=== PATIENT | male | born 1940 | race Caucasian/White ===

== ENCOUNTER 2016-11-18 09:02 | Day surgery (SDC) | payer MEDICARE ==
[~2016-11-18] VITALS: Ht 182.9 cm; Wt 74.8 kg
[~2016-11-18 09:02] MED LIST: 0.9% Sodium Chloride 1,000 ML IV SCH; ASCO500W7 PO; ASPI-973 PO; CALC-235 PO; COPP2CAP PO; GLUC500T12 PO; LIP40 PO; LOSA1TAB9 PO; LUTE20TA PO; METO25TA99 PO; MILK200C4 PO; MULT1CAP33 PO; OMEP20CA11 PO; Sodium Chloride LOK Flush 10 mL Syringe IV PRN; TAUR1000 PO; TURM500C7 PO; VIT1TABL83 PO; VITA400C64 PO; ZINC50TA2 PO; fentaNYL-PF 50 mCg/mL 2 mL Inj IVPUSH PRN
[2016-11-18] MEDS ORDERED: Propofol 10,000 mCg/mL 20 mL Inj ONE (09:03)
[2016-11-18] MEDS ORDERED: fentaNYL-PF 50 mCg/mL 2 mL Inj ONE (09:03)
[2016-11-18 09:30] VITALS: BP 136/99; PULSE 65; RESP 16; O2SAT 100
--- NOTE | 2016-11-18 10:59 | PCM.HPANE ---
Patient Data Date of Service: Nov 18, 2016 (1100) Surgeon Admitting Provider: Attending Provider:Evaristo Candelaria MD Primary Care Physician:Dagoberto Sheffield MD Other Provider: Reason for Visit Colon Cancer Screening, Barretts Esop Ht/WT & BMI Height (Feet): 6 Height (Inches): 0 Weight (Kilograms): 74.84 Body Mass Index 22.00 Allergies Coded Allergies: lisinopril (Verified Allergy, Unknown, 11/18/16) Past Anesthesia History Anesthesia History: Denies:: Abnormal Airway, Anesthesia Reactions, Difficult Intubation, Fam Anesthesia Reaction, Fam Malignant Hypertherm, Malignant Hyperthermia Diabetes History Hx Diabetes?: No MRSA MRSA: No Medications Blood Thinner: Aspirin Home Meds Incl Beta Pastor: Yes Date Beta Pastor Taken: Nov 15, 2016 Time Beta Pastor Taken: 0800 Reported Medications Zinc (Zinc Chelated)50 Mg Iyvitn32 Mg PO DAILY 11/16/16 Vitamin E Mixed (Vitamin E)400 Unit [id number] Unit PO DAILY 30 Days 11/16/16 Ascorbic Acid/Ascorbate Sodium (Vitamin C 500 mg Wafer)500 Mg Tafir053 Mg PO DAILY 11/16/16 Vit B Comp/C/FA/Iron/Vit E (Vitamin B Complex Tablet)1 Each Tablet1 Each PO DAILY 11/16/16 Turmeric Root Extract (Turmeric)500 Mg Capsule1 Capsule PO DAILY 11/16/16 Taurine (Serafin Taurine)1,000 Mg Capsule1,000 Mg PO DAILY 11/16/16 Omeprazole 20 Mg Capsule.dr20 Mg PO DAILY Ref 0 11/16/16 Multivitamin (Multivitamins)1 Each Capsule1 Each PO DAILY 11/16/16 Milk Thistle Seed Extract (Milk Thistle)200 Mg Omhqjsq713 Mg PO DAILY 11/16/16 Metoprolol Succinate ER 25 Mg Tab.er.24h25 Mg PO DAILY Ref 0 11/16/16 Lutein 20 Mg Oiwfyl98 Mg PO DAILY 11/16/16 Losartan/HCTZ 100-12.5 mg (Hyzaar 100-12.5 mg)1 Each Tablet1 Tablet PO DAILY 11/16/16 Glucosamine 500 Mg Tablet1,500 Mg PO DAILY 11/16/16 Copper Gluconate (Copper)2 Mg Capsule2 Mg PO DAILY 11/16/16 Calcium Carbonate/Vitamin D3 (Calcium 250+D Tablet)1 Each Tablet1 Each PO DAILY 11/16/16 Atorvastatin (Lipitor)40 Mg Attzeu35 Mg PO DAILY Ref 0 11/16/16 Aspirin 81 Mg Rhewwr42 Mg PO DAILY Ref 0 11/16/16 History History of ENT Problems?: No HEENT History: Denies:: Abnormal Airway Difficult Intubation Hearing Problem Hx of Heart Problems?: No Cardiovascular History: Positive for:: Hypertension Denies:: AICD Pacemaker Valvular Heart Disease Hx of Respiratory Problem?: No Respiratory History: Denies:: Cough Neurological History: Denies:: CVA Hx of GI Problems?: Yes Gastrointestinal History: Positive for:: Gastroesphageal Reflux Hx Surgeries?: Yes (TONSILS, ) Hx Any Other Health Problems?: No Hx Diabetes: No Hx Alcohol Use: Yes (3-5 beers / day) Stop/Bang Treated for Sleep Apnea?: No Do You Have a CPAP Machine?: No S-Snoring: Do You Snore Loudly: Yes T-Tired: feel tired, fatigued: No O-Obsered: Observed not breath: Yes P-Blood Pressure: treated: Yes B- Body Mass Index > 35 kg/m2: No A- Age over 50: Yes N- Neck Large Circumference: No G- Gender Male: Yes MARYSOL Total Score: 5 MARYSOL Risk Assessment: High Risk, =/>3 Yes MARYSOL Category 2: Yes Risk Assessment Category Category 1A: Patient has history of documented sleep apnea, and HAS NOT received any narcotic, sedative or anesthesia administration during this stay. Category 1B: Patient has history of documented sleep apnea, and HAS received any narcotic , sedative or anesthesia administration during this stay Category 2: Patient has SUSPECTED Obstructive Sleep Apnea, and HAS received any narcotic , sedative or anesthesia administration during this stay. Category 3: Patient has SUSPECTED Obstructive Sleep Apnea and HAS NOT received narcotic, sedative or anesthesia administration during this stay. Category 4: Outpatient in Procedural Areas with known sleep apnea or who screen positive for High Risk via the STOP/BANG questionnaire. Exam Exam Vital Signs Vital Signs Date Time Temp Pulse Resp B/P Pulse Ox O2 Delivery O2 Flow Rate FiO2 11/18/16 09:30 65 16 136/99 100 Room Air General Appearance: Alert, Oriented X3 HEENT/AIRWAY: MP 3 Lungs: Clear to Auscultation Heart: Exam Unremarkable Meds/Labs/Diagnostics Admission Meds Current Medications Sodium Chloride (Normal Saline) 1,000 ml @ 10 mls/hr Q24H IV Last administered on 11/18/16t 10:11; Start 11/18/16 at 06:00 Plan Impression Patient chart reviewed, patient interviewed and anesthestic plan with risks, benefits, and alternatives discussed, and informed consent obtained. NPO Status: >8 HRS ASA Physical Status: ASA2 Mod Systemic Disease Anesthetic Plan: GA Bene/Risks/Altern/Consents: Yes HP Complete Prior to Induction: Yes Joaquin Medina MD Nov 18, 2016 10:59
--- NOTE | 2016-11-18 11:22 | PCM.ENDEGD ---
EGD Date of Service: Nov 18, 2016 Physician Evaristo Candelaria MD Pre Procedure Diagnosis: History of Woods's esophagus Post Procedure Dx & Findings: Woods's esophagus Procedure Esophagogastroduodenoscopy PROCEDURE IN DETAIL: The patient was placed in left lateral decubitus position. Bite block was placed. Scope lubricated, placed in posterior pharynx, passed through the cricopharyngeus and esophagus, slowly advanced the entire length of the gastric pouch, pylorus was identified, scope passed through the pylorus and descending portion of duodenum, withdrawn in the antrum, retroflexed upon itself for view of fundus and cardia. Scope was then withdrawn through the oropharynx. Esophagus unremarkable other than Woods's esophagus starting at 44 cm extending into Z line at 40 cm. Narrow banding use. There was no ulcers or erosions masses nodule or mucosa abnormality. 4 quadrant biopsies obtained every 2 cm. Stomach was normal with normal-appearing mucosa with normal appearing rugae folds without ulcerative masses or erosions. Cardia fundus body antrum pylorus were visualized. Retroflexion was done. Stomach was easily inflatable and deflatable using air. Scope further advanced to the distal duodenum. Duodenal mucosa so normal villous structures with normal appearing folds. Impression Woods's esophagus 4 cm status post biopsy per protocol. No alarming features. Recommendation Repeat EGD 3 years. Presedation Assessment Risks and Benefits Informed consent was obtained from the patient after all risks and benefits including but not limited to drug reaction, infection, pain, bleeding, perforation, as well as alternatives were discussed. Patient monitoring Continuous pulse oximetry, cardiac monitoring, blood pressure monitoring, IV access, and oxygen at 2L per nasal cannula. Complications There were no periprocedural complications identified. Post Procedure Plan Post Procedure Recommendations 1. Restrict activities today. 2. Resume normal activities in the morning. 3. Resume medications. 4. GERD behavioral modification: - Avoid fatty, acidic, spicy, large meals - Do not lie down after meals - Do not eat or drink anything for at least 2 1/2 hours before going to bed at night - Discontinue tobacco and alcohol - Decrease or avoid caffeine - Avoid chocolate and mints - Decrease weight - Avoid aspirin and non steroidal anti-inflammatory agents (NSAID) such as Aleve, Advil, Mobic, Naproxen, Ibuprofen, etc 5. Add proton pump inhibitor. Take 30 minutes before 1st meal of the day. 6. Patient informed of normal post procedure side effects as bloating, drowsiness, blood streaking in the stool 7. If gastric biopsy reveal H.pylori, continue with appropriate treatment 8. If small bowel biopsy reveals celiac, continue with appropriate treatment 9. Please don't hesitate to call me with any questions Evaristo Candelaria MD Nov 18, 2016 11:22
[2016-11-18 11:45] VITALS: BP 112/64; PULSE 58; RESP 16; O2SAT 98
[2016-11-18] MEDS ORDERED: Lactated Ringer's 1,000 ML IV SCH (11:48)
--- NOTE | 2016-11-18 11:48 | PCM.ENDCOL ---
Colonoscopy Date of Service: Nov 18, 2016 Physician Evaristo Candelaria MD Indication for Procedure screening colon Post Procedure Dx & Findings: Polyp hemorrhoids diverticula Procedure Colonoscopy Prep adequate Withdrawal 12 minutes PROCEDURE IN DETAIL: After unremarkable rectal examination Olympus video colonoscope was inserted patient's anal canal and was advanced to cecum. Landmarks were identified including the ileocecal valve and the appendiceal orifice. There was a 2 mm flat polyp in the cecum which was resected completely using cold snare. Patient had multiple diverticuli medium size mostly in the sigmoid colon but there were a few isolated once up to the ascending colon. In the rectum retroflexion was done which showed mild hemorrhoids and anal canal was inspected carefully on the way out and hemorrhoids noted. The mucosa of the cecum, ascending, transverse, descending, sigmoid, rectal mucosa lined with whitish, pink, smooth, glistening, normal-appearing mucosa, normal fine branching, underlying vascularity, normal haustra. The patient tolerated procedure and was transported to observation area. Impression Polyp status post complete removal Hemorrhoids Diverticula Recommendation Repeat colonoscopy 5 years Diverticular diet Presedation Assessment Risks and Benefits Informed consent was obtained from the patient after all risks and benefits including but not limited to drug reaction, infection, pain, bleeding, perforation, as well as alternatives were discussed. Patient monitoring Continuous pulse oximetry, cardiac monitoring, blood pressure monitoring, IV access, and oxygen at 2L per nasal cannula. Complications There were no periprocedural complications identified. Post Procedure Plan Post Procedure Recommendations 1. Restrict activities today. 2. Resume normal activities in the morning. 3. Resume medications. 4. Patient informed of normal post procedure side effects as bloating, drowsiness, blood streaking in the stool. 5. average risk CRCS. If colon polyps come back as: -Hyperplastic- can repeat colonoscopy in 10 years -Tubular adenoma- repeat colonoscopy in 5 years -Tubulovillous/villous adenoma- repeat colonoscopy in 3 years -If any dysplasia- return to clinic as soon as possible 6. Please don't hesitate to call me with any questions. Evaristo Candelaria MD Nov 18, 2016 11:48
--- NOTE | 2016-11-18 11:48 | PCM.ANEP1 ---
Post Anesthesia Phase 1 PACU Phase 1 Assessment Date of Service: Nov 18, 2016 Vital Signs 98%, 53, 112/64, 36.4, 16 Vital Signs Date Time Temp Pulse Resp B/P Pulse Ox O2 Delivery O2 Flow Rate FiO2 11/18/16 09:30 65 16 136/99 100 Room Air Anesthetic Administered: GA Level of Alertness: Awake, talking GRAHAM's with Equal Strength: Yes Pain: No Nausea or Vomiting: No Lungs: Clear to Auscultation Dermatome Level: Full Sensation Summary uneventful GA Joaquin Medina MD Nov 18, 2016 11:48
--- NOTE | 2016-11-18 11:48 | PCM.ANEP2 ---
Post Anesthesia Evaluation ASA/CMS Post Anesthesia VS in Patient's Normal Range?: Yes Resp Stable; Airway Patent?: Yes CV Function & Hydration Stable: Yes Mental Status Recovered?: Yes Pain control Satisfactory?: Yes N/V Control Satisfactory?: Yes Joaquin Medina MD Nov 18, 2016 11:48
[2016-11-18] MEDS ORDERED: Ondansetron 2 mg/mL 2 mL Inj IVPUSH PRN (11:50)
[2016-11-18] MEDS ORDERED: MetoCLOpramide 5 mg/mL 2 mL Inj IVPUSH PRN (11:50)
[2016-11-18 11:55] VITALS: BP 101/74; PULSE 55; RESP 16; O2SAT 100
[2016-11-18 12:05] VITALS: BP 130/73; PULSE 62; RESP 16; O2SAT 99
--- NOTE | 2016-11-19 17:23 | PATH ---
SURGICAL PATHOLOGY Attending Physician:Evaritso Candelaria M.D. CASE STATUS: Signed Out PATIENT NAME: CASH BARBOSA JR PID: [id number] : 1940 DATE COLLECTED:11/18/2016 23:13 SPECIMEN: 1: Esophagus, Biopsy 2: Colon, Biopsy CLINICAL HISTORY: 1). DEL VALLE'S BIOPSY 2). CECAL POLYP X1 FINAL DIAGNOSIS: 1. Esophagus, Biopsy: Squamocolumnar junctional mucosa with specialized intestinal metaplasia consistent with Del Valle's esophagus. Negative for dysplasia and malignancy. 2. Cecum, Polyp x1, Biopsy: Colonic mucosa with a small benign lymphoid aggregate and no other diagnostic abnormality. Negative for dysplasia and malignancy. ICD10 K22.70 GROSS DESCRIPTION: The specimen is received in two formalin filled containers labeled with the patient's name. 1). The specimen is sublabeled "Barretts" and consists of multiple portions of tissue which aggregate to 0.4 x 0.4 x 0.2 CM. The specimen is entirely submitted in cassette 1A 2). The specimen is sublabeled "cecal polyp X1" and consists of a 0.5 x 0.3 x 0.2 CM portion of tissue which is entirely submitted in cassette 2A. 11/19/2016 [facility] ICD-9 CODES: CPT CODES: 1: 62475 2: 26999 Electronically Signed Out Yesika Antoine MD [facility] Pathology [facility] [address], [place] [address] Technical component performed at [facility], [facility] [address], [place], [address]
== END 2016-11-18 23:59 | disposition home or self-care (01) ==
LOC: END 09:02
PROVIDERS: ATTEND Internal Medicine
DX: Z12.11 Encounter for screening for malignant neoplasm of colon (principal); K63.5 Polyp of colon; K22.70 Barrett's esophagus without dysplasia; K57.30 Diverticulosis of large intestine without perforation or abscess without bleeding; K64.9 Unspecified hemorrhoids; I10 Essential (primary) hypertension; I35.0 Nonrheumatic aortic (valve) stenosis; F17.210 Nicotine dependence, cigarettes, uncomplicated
CPT/HCPCS: 43239; 45380; J2250; J3010; J7030

== ENCOUNTER 2016-12-25 10:32 | Emergency (ER) | payer MEDICARE ==
[~2016-12-25] VITALS: Ht 182.9 cm; Wt 75.5 kg
[~2016-12-25 10:32] MED LIST changes: -0.9% Sodium Chloride 1,000 ML IV SCH; -Sodium Chloride LOK Flush 10 mL Syringe IV PRN; -fentaNYL-PF 50 mCg/mL 2 mL Inj IVPUSH PRN
[2016-12-25 10:41] VITALS: BP 159/84; PULSE 63; RESP 16; O2SAT 100
--- NOTE | 2016-12-25 10:58 | ED.REPORT ---
HPI-URI / Cough / Cold Date of Service Dec 25, 2016 ED Provider: Frances Wells MD Pt is a 76 year old male with a hx of chronic coughing presenting to the ED complaining of blood in sputum for the last 2 days. Associated symptoms include chills 2 nights ago. He denies SOB, fever, lower extremity swelling, change in his cough, change in weight. He takes baby Aspirin daily, and smokes e- cigarettes. Nursing Notes Stated Complaint: BLOOD IN SPIT Chief Complaint: General Complaint Nursing Notes Reviewed: Yes Allergies: Coded Allergies: lisinopril (Verified Allergy, Unknown, 11/18/16) Scheduled Ascorbic Acid/Ascorbate Sodium (Vitamin C 500 mg Wafer) 500 Mg Wafer 500 MG PO DAILY Aspirin (Aspirin) 81 Mg Tablet 81 MG PO DAILY Atorvastatin (Lipitor) 40 Mg Tablet 40 MG PO DAILY Azithromycin (Zithromax) 250 Mg Tablet 250 MG PO DAILY Calcium Carbonate/Vitamin D3 (Calcium 250+D Tablet) 1 Each Tablet 1 EACH PO DAILY Copper Gluconate (Copper) 2 Mg Capsule 2 MG PO DAILY Glucosamine (Glucosamine) 500 Mg Tablet 1,500 MG PO DAILY Losartan/HCTZ 100-12.5 mg (Hyzaar 100-12.5 mg) 1 Each Tablet 1 TABLET PO DAILY Lutein (Lutein) 20 Mg Tablet 20 MG PO DAILY Metoprolol Succinate ER (Metoprolol Succinate ER) 25 Mg Tab.er.24h 25 MG PO DAILY Milk Thistle Seed Extract (Milk Thistle) 200 Mg Capsule 200 MG PO DAILY Multivitamin (Multivitamins) 1 Each Capsule 1 EACH PO DAILY Omeprazole (Omeprazole) 20 Mg Capsule.dr 20 MG PO DAILY Taurine (Serafin Taurine) 1,000 Mg Capsule 1,000 MG PO DAILY Turmeric Root Extract (Turmeric) 500 Mg Capsule 1 CAPSULE PO DAILY Vit B Comp/C/FA/Iron/Vit E (Vitamin B Complex Tablet) 1 Each Tablet 1 EACH PO DAILY Vitamin E Mixed (Vitamin E) 400 Unit Capsule 400 UNIT PO DAILY Zinc (Zinc Chelated) 50 Mg Tablet 50 MG PO DAILY General Time Seen by MD: 10:57 Chief Complaint Other (Blood in sputum) Hx Obtained From: Patient Arrived By: Walk-in Onset Occurred: 2 days ago Symptom Duration: Intermittent Severity: Current: No pain currently Severity: Maximum: No pain Recent Healthcare: No recent doctor visit, No recent hospitalization Similar Sx Previous: No Past Medical History Past Medical History Gastroesphageal Reflux Reports: Hypertension Past Surgical History Reports: Tonsillectomy Smoking History Current Every Day Smoker Social History Former cigarette smoker, current e-cigarette smoker. Ambulatory Status Independent Review of Systems Constitutional: Reports: Chills, Denies: Fever Respiratory: Reports: Prod cough, bloody, Denies: Shortness of breath Complete sys rev & neg: except as marked. Musculoskeletal: Denies: Extremity swelling Endocrine: Denies: Weight gain, Weight loss Physical Exam Initial Vital Signs Vital Signs (First) Date Time Temp Pulse Resp B/P Pulse Ox O2 Delivery O2 Flow Rate FiO2 12/25/16 10:41 36.8 63 16 159/84 100 Room Air Initial VS: Reviewed, Vital signs abnormal Neck: Supple Cardiovascular: Regular rate & rhythm, Heart sounds normal, Intact distal pulses Abdomen / GI: Soft, Non-tender, No guarding, No rebound, No distention Extremities: Vascular intact, Neuro intact, No swelling, No tenderness Skin: Warm, Dry, No cyanosis Neurologic: Alert, Oriented, Nonfocal Psychiatric: Mood/affect normal, Behavior normal, Normal thought content General/Constitutional: Awake, Alert, No acute distress, Well appearing ENT: Atraumatic, Airway patent Respiratory / Chest: No respiratory distress Rhonchi in left mid to lower lobe that cleared. Interpretation & Diagnostics Interpretation & Diagnostics: CT ANGIO: IMPRESSION: No evidence of pulmonary embolism. Patchy consolidation within the left lung base and surrounding groundglass opacities. This could represent early pneumonia versus aspiration. Please correlate clinically. Cardiomegaly. Midline anterior chest wall possibly cystic lesion, technically nonspecific. Please correlate clinically and with visual inspection Dictated by: Miguel Floyd M.D. on 12/25/2016 at 14:51 Lab Results Interpretation Result Diagram: 12/25/16 1254 Test 12/25/16 12:54 Hold Purple Top Tube Received (Received) Hold Blue Top Tube Received (Received) Sodium Level 139mEq/L (134-144) Potassium Level 4.5mEq/L (3.5-5.2) Chloride Level 102mEq/L (97-108) Carbon Dioxide Level 25mmol/L (18-29) Blood Urea Nitrogen 16mg/dL (8-27) Creatinine 0.69mg/dL (0.76-1.27) Estimat Glomerular Filtration Rate 119mL/min (>59) Glucose Level 93mg/dL (60-99) Calcium Level 9.5mg/dL (8.5-10.1) Hold [place] Top Tube Received (Received) Hold [place] Top Tube Received (Received) ECG Interpretation ECG Interpretation: Sinus bradycardia, PAC. No acute changes. Time: 13:06 Interpreted by: ED physician Abnormal Rate: 50 (49) X-Ray Chest Interpretation Chest Xray Interpretation: IMPRESSION: No acute disease. Dictated by: Miguel Floyd M.D. on 12/25/2016 at 11:59 View: AP & lat Interpretation / Wet Read by: Interpret - Radiologist Re-Eval/Medical Decision Med Decision/Clinical Course Patient presents with hemoptysis and has a history of chronic cough. Differential diagnosis consider pulmonary embolus, pneumonia, bronchitis, and lung cancer. Chest x-ray was negative, given the patient's age CT of the chest was obtained and shows pneumonia. The patient is not hypoxic and so be treated as an outpatient. Re-Evaluation/Progress : Time of Eval: 15:10 Patient Status: Condition improved Re-Evaluation/Progress Note: Discussed plan for discharge. Pt understands and agrees with plan. Counseled Regarding: Diagnosis, Lab results, Need for follow-up, When/why to return to ED Discharge & Departure Impression: Primary Impression: Pneumonia Pneumonia type: due to unspecified organism Laterality: unspecified laterality Lung location: unspecified part of lung Qualified Code: B99.9 - Unspecified infectious disease Disposition: Home Discharge Condition All VS Reviewed: Yes Condition: Improved Patient Instructions: Community-acquired Pneumonia (ED) Additional Instructions: Rest and take your antibiotics as prescribed. Take your next dose of antibiotic tomorrow afternoon. Seek care if your symptoms are not improving, if you have worsening heavy breathing over next few days, or for any other concerning symptoms. Referrals: Dagoberto Sheffield MD (PCP) Claudia[place]malu Attestation Portions of this note were transcribed by Trini Lane. I, Dr. Wells personally performed the history, physical exam and medical decision-making; I reviewed and confirmed the accuracy of the information in the transcribed note. Signed by : Hung Edwards, 12/25/2016 and 1519. copies to: Dagoberto Sheffield MD, Jena M MD Dec 25, 2016 10:[address] Dec 25, 2016 11:06
--- NOTE | 2016-12-25 12:02 | DRSVH ---
PROCEDURE: X-RAY CHEST, TWO VIEWS ([id number]) INDICATIONS: hemoptysis TECHNIQUE: 2 views of the chest were acquired. COMPARISON: [facility], , CHEST 2VW, 02/08/2014, 13:20. FINDINGS: Surgical changes and devices: None. Lungs and pleura: No pleural effusions or pneumothorax. Lungs are clear. Diffuse scarring/atelecta sis, mild. Mediastinum: Mediastinal contours are normal. Heart size is normal. Bones and chest wall: No suspicious bony abnormalities. Soft tissues appear unremarkable. IMPRESSION: No acute disease. Dictated by: Miguel Floyd M.D. on 12/25/2016 at 11:59 Approved by: Miguel Floyd M.D. on 12/25/2016 at 12:00
[2016-12-25] MEDS ORDERED: 0.9% Sodium Chloride 1,000 ML IV ONE (12:20)
[2016-12-25 12:51] VITALS: BP 130/74; PULSE 51; O2SAT 100
--- NOTE | 2016-12-25 15:00 | DRSVH ---
PROCEDURE: CT ANGIO CHEST PULMONARY EMBOLISM ([id number]) INDICATIONS: hemoptysis TECHNIQUE: After the administration of intravenous contrast, 2 mm thick sections acquired from the pulmonary api giovanna to the posterior costophrenic angles. 3-dimensional maximum intensity projection (MIP) coronal a nd sagittal reformats were then acquired through the thorax. For radiation dose reduction, the follo wing was used: automated exposure control, adjustment of mA and/or kV according to patient size. COMPARISON: [facility], CT, CHEST W/O CONTRAST, 08/29/2008, 11:08. FINDINGS: Image quality: Excellent. Pulmonary arteries: Pulmonary arteries are normal in size, and demonstrate no intraluminal filling d efects to suggest central pulmonary embolism. Lungs and pleura: Patchy groundglass opacities primarily within the mid left lung and left lower lobe . There is also mild consolidation in the left lower lobe. No pneumothorax or pleural effusion. Mediastinum: Heart size is enlarged, without pericardial effusion. No mediastinal or hilar adenopat hy. Thoracic aorta is normal in caliber and enhancement. Esophagus is normal in caliber, without hi atal hernia. Bones and chest wall: No suspicious bony lesions. Ribs and thoracic spine appear intact throughout. Thyroid gland is unremarkable. No axillary or supraclavicular adenopathy. Ovoid simple cystic les ion measuring 3 cm demonstrating internal water attenuation in the midline anterior chest. Abdomen: Visualized upper abdominal solid organs appear normal in the early arterial phase of enhanc ement. IMPRESSION: No evidence of pulmonary embolism. Patchy consolidation within the left lung base and surrounding groundglass opacities. This could repr esent early pneumonia versus aspiration. Please correlate clinically. Cardiomegaly. Midline anterior chest wall possibly cystic lesion, technically nonspecific. Please correlate clinica lly and with visual inspection Dictated by: Miguel Floyd M.D. on 12/25/2016 at 14:51 Approved by: Miguel Floyd M.D. on 12/25/2016 at 14:58
[2016-12-25] MEDS ORDERED: ZIT250 PO (15:17)
[2016-12-25 15:35] VITALS: BP 144/68; PULSE 44; RESP 14; O2SAT 99
== END 2016-12-25 15:30 | disposition home or self-care (01) ==
LOC: SED 10:32
DX: J18.9 Pneumonia, unspecified organism (principal); K21.9 Gastro-esophageal reflux disease without esophagitis; I10 Essential (primary) hypertension; F17.200 Nicotine dependence, unspecified, uncomplicated; Z79.82 Long term (current) use of aspirin; Z88.8 Allergy status to other drugs, medicaments and biological substances
CPT/HCPCS: 36415; 71020; 71275; 80048; 93005; 96360; 99285; J7030; Q9967